=== PATIENT | male | born 1995 | race Caucasian/White ===

== ENCOUNTER 2018-01-14 20:41 | Emergency (ER) | payer OTHER ==
--- NOTE | 2018-01-14 21:08 | CPEKG ---
Heart Rate: 71 RR Interval: 845 P-R Interval: 160 QRSD Interval: 94 QT Interval: 380 QTC Interval: 413 P Partridge: 65 QRS Partridge: 64 T Wave Partridge: 35 EKG Severity - NORMAL ECG - EKG Impression: SINUS RHYTHM Electronically Signed By: Neha Mckay 14-Jan-2018 22:49:43
[2018-01-14 21:39] LABS: PLATELET COUNT 259 10^3/uL (150-400)
--- NOTE | 2018-01-14 21:43 | EDPHY ---
H & P Stated Complaint: chest pain all day - Personal History Current Tetanus Diphtheria and Acellular Pertussis (TDAP): Unsure - Medical/Surgical History Hx Asthma: No Hx Chronic Respiratory Disease: No Hx Diabetes: No Hx Cardiac Disease: No Hx Renal Disease: No Hx Cirrhosis: No Hx Alcoholism: No Hx HIV/AIDS: No Hx Splenectomy or Spleen Trauma: No - Social History Smoking Status: Never smoked Time Seen by Provider: 01/14/18 21:23 HPI/ROS: CHIEF COMPLAINT: Pleuritic chest pain since this morning HISTORY OF PRESENT ILLNESS: 22-year-old male healthy, awoke with left-sided pleuritic chest pain. Pain reproducible with inspiration, palpation of the chest wall.. Atraumatic. No dyspnea. No back or flank pain. No drug or alcohol use. No cigarette use. No cocaine use. No history of cardiac disease. REVIEW OF SYSTEMS: A ten point review of systems was performed and is negative with the exception of the items mentioned in the HPI PAST MEDICAL & SURGICAL HISTORY: No pertinent medical or surgical history SOCIAL HISTORY:Nonsmoker. Student. No illicit drug use. PHYSICAL EXAM (Prior to examination, patient consented to physical exam, hands were washed and my usual and customary physical exam procedures followed) 1) GENERAL: Well-developed, well-nourished, alert and oriented. Appears to be in no acute distress. Appears comfortable, sitting upright using his computer. 2) HEAD: Normocephalic, atraumatic 3) HEENT: Pupils equal, round, reactive to light bilaterally. Sclera anicteric. Nasopharynx, oropharynx, clear, no lesions. Ears bilaterally with normal tympanic membranes. 4) NECK: Full range of motion, no meningeal signs. No carotid bruit 5) LUNGS: Clear auscultation bilaterally, no wheezes, no rhonchi, no retractions. Chest wall is tender to palpation over the left lateral pectoralis region. No crepitus. No visible signs of trauma. No lesions no rash. 6) HEART: Regular rate and rhythm, no murmur, no heave, no gallop. 7) ABDOMEN: No guarding, no rebound, no focal tenderness, negative McBurney's, negative Jacobson's, negative Rovsing's, negative peritoneal sign, 8) MUSCULOSKELETAL: Moving all extremities, no focal areas of tenderness, no obvious trauma. No peripheral edema or discoloration. Negative Homans no palpable cord. 9) BACK: No CVA tenderness, no midline vertebral tenderness, no fluctuance, no step-off, no obvious trauma, no visual or palpable abnormality. 10) SKIN: No rash, no petechiae. 11) Psychiatric: Patient is oriented X 3, there is no agitation. DIFFERENTIAL DIAGNOSIS: In no particular order, including but not limited to myocardial ischemia, pulmonary embolus, chest wall pain, pleural inflammation and pulmonary infectious causes. (Teodoro Dobbins) Constitutional: Initial Vital Signs Temperature (C) 36.8 C 01/14/18 20:46 Heart Rate 77 01/14/18 20:46 Respiratory Rate 20 01/14/18 20:46 Blood Pressure 141/67 H 01/14/18 20:46 O2 Sat (%) 93 01/14/18 20:46 O2 Delivery Mode Room Air Allergies/Adverse Reactions: No Known Allergies Allergy (Unverified 01/14/18 20:45) Home Medications: Medication Instructions Recorded NK [No Known Home Meds] 01/14/18 Medical Decision Making ED Course/Re-evaluation: The patient was evaluated and managed by the physician's junior sales assistant. My cosignature indicates that I reviewed the chart and I agree with the findings and plan of care as documented. I am the secondary supervising physician. ( Neha Mckay) Patient was re-evaluated with serial examinations. I think the patient's pain is more likely secondary to acute chest wall pain given his lack of personal or family cardiac or pulmonary risk factors, lack of drug use, negative D-dimer, negative troponin, normal EKG, negative chest x-ray, reproducible pain with palpation. At this time I do not think that further diagnostic studies are indicated. We discussed NSAID administration for pain relief. Patient feels comfortable being discharged. Usual and customary discharge precautions and instructions provided. Care of patient under supervision of secondary supervising physician Dr Mckay . (Teodoro Dobbins) - Data Points Laboratory Results: Laboratory Results 01/14/18 21:00 01/14/18 21:00 01/14/18 01/14/18 01/14/18 21:00 21:00 21:00 WBC 7.89 10^3/uL 10^3/uL (3.80-9.50) RBC 5.14 10^6/uL 10^6/uL (4.40-6.38) Hgb 16.4 g/dL g/dL (13.7-17.5) Hct 44.9 % % (40.0-51.0) MCV 87.4 fL fL (81.5-99.8) MCH 31.9 pg pg (27.9-34.1) MCHC 36.5 g/dL g/dL (32.4-36.7) RDW 11.9 % % (11.5-15.2) Plt Count 259 10^3/uL 10^3/uL (150-400) MPV 9.0 fL fL (8.7-11.7) Neut % (Auto) 61.9 % % (39.3-74.2) Lymph % (Auto) 29.9 % % (15.0-45.0) Boyd % (Auto) 6.0 % % (4.5-13.0) Eos % (Auto) 1.6 % % (0.6-7.6) Baso % (Auto) 0.5 % % (0.3-1.7) Nucleat RBC Rel Count 0.0 % % (0.0-0.2) Absolute Neuts (auto) 4.88 10^3/uL 10^3/uL (1.70-6.50) Absolute Lymphs (auto) 2.36 10^3/uL 10^3/uL (1.00-3.00) Absolute Monos (auto) 0.47 10^3/uL 10^3/uL (0.30-0.80) Absolute Eos (auto) 0.13 10^3/uL 10^3/uL (0.03-0.40) Absolute Basos (auto) 0.04 10^3/uL 10^3/uL (0.02-0.10) Absolute Nucleated RBC 0.00 10^3/uL 10^3/uL (0-0.01) Immature Gran % 0.1 % % (0.0-1.1) Immature Gran # 0.01 10^3/uL 10^3/uL (0.00-0.10) D-Dimer < 0.27 ug/mLFEU ug/mLFEU (0.00-0.50) Sodium 143 mEq/L mEq/L (135-145) Potassium 3.9 mEq/L mEq/L (3.5-5.2) Chloride 103 mEq/L mEq/L (97-110) Carbon Dioxide 25 mEq/l mEq/l (22-31) Anion Gap 15 mEq/L mEq/L (8-16) BUN 21 mg/dL mg/dL (7-23) Creatinine 0.9 mg/dL mg/dL (0.7-1.3) Estimated GFR > 60 Glucose 115 mg/dL H mg/dL (70-100) Calcium 9.7 mg/dL mg/dL (8.5-10.4) Troponin I < 0.012 ng/mL ng/mL (0.000-0.034) Departure - Departure Disposition: Home, Routine, Self-Care Clinical Impression: Chest wall pain Condition: Good Instructions: Chest Wall Pain (ED) Additional Instructions: Seek medical attention if you develop new or worsening chest pain, if you develop new or worsening shortness of breath, or any other symptoms that concern you. Adult Pain & Fever Control: We recommend Acetaminophen (Tylenol) and Ibuprofen (Motrin,Advil) for pain and fever control. When fever is high or pain severe, both drugs can be used at the same time, but at different intervals. Please note the time differences. Your dose is: Acetaminophen 650mg every 4 to 6 hours Ibuprofen 600mg every 6 hours with food OR Note: do not take Acetaminophen with Hydrocodone (Vicodin, Lortab) or Oycodone (Percocet). These medications also contain Acetaminophen. No more than 3000mg of Acetaminophen should be taken in 24 hours (for an adult). Referrals: [facility]OD[facility] Teresa,. [Clinic] - 1-2 days without fail
[2018-01-14 22:14] VITALS: BP 138/73
== END 2018-01-14 22:32 | disposition home or self-care (01) ==
DX: R07.89 Other chest pain (principal)